=== PATIENT | female | born 1975 | race African-American/Black ===

== ENCOUNTER 2017-06-27 19:05 | Emergency (ER) | payer MEDICAID ==
[~2017-06-27] VITALS: Ht 157.5 cm; Wt 81.7 kg
--- NOTE | ~2017-06-27 | EKG ---
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1975 Requested By: Andres Felton Order Number: [id number] MD: Parker Apple Measurements Intervals [place] Rate: 63 P: 8 [place]: 125 QRS: 54 QRSD: 90 T: 40 QT: 422 QTc: 433 Interpretive Statements Sinus rhythm No significant abnormality Baseline wander in lead(s) V5 No previous ECG available for comparison Electronically Signed On 06-28-2017 9:03:45 [employer] by Parker Apple [email or web address] <ELECTRONICALLY SIGNED> By: Parker Apple MD, [facility] 06/28/17 0903 [id number] Parker Apple MD, FACC /EPI
[2017-06-27] MEDS ORDERED: NOHOMEMEDICATIONS (19:38)
[2017-06-27 19:49] LABS: ABSOLUTE NEUTROPHILS 2.4 thou/uL (1.4-8.2); BASOPHILS 1.6 % (0.0-2.0); EOSINOPHILS 0.8 % (0.0-3.0); HEMATOCRIT 41.8 % (37.0-47.0); LYMPHOCYTES 54.8 % (24.0-44.0); MCH 28.4 pg (26.0-34.0); MCHC 33.4 g/dL (28.0-37.0); MCV 85.1 fL (80.0-100.0); MONOCYTES 6.3 % (1.0-8.0); PLATELET COUNT 301 thou/uL (150-400); POLYS 36.5 % (36.0-66.0); RBC 4.91 mil/uL (4.20-5.00); RDW 13.8 % (10.5-14.5); WBC 6.6 thou/uL (4.0-11.0)
[2017-06-27 19:58] LABS: CALCIUM 9.4 mg/dL (8.5-10.1); CREATININE 0.7 mg/dL (0.6-1.0)
[2017-06-27] MEDS ORDERED: MOBIC15 MG PO (21:30)
== END 2017-06-27 21:57 | disposition home or self-care (01) ==
LOC: ER 19:05
PROVIDERS: Physician Assistant
DX: R07.89 Other chest pain (principal); Z90.710 Acquired absence of both cervix and uterus; Z88.1 Allergy status to other antibiotic agents

== ENCOUNTER 2018-03-12 17:02 | Emergency (ER) | payer OTHER ==
[~2018-03-12] VITALS: Ht 157.5 cm; Wt 72.6 kg
--- NOTE | ~2018-03-12 | EKG ---
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
[~2018-03-12 17:02] MED LIST: MOBIC15 MG PO; NOHOMEMEDICATIONS
[2018-03-12 18:28] LABS: ANION GAP 8 mmol/L (7-16); BUN 13 mg/dL (7-18); CALCIUM 9.1 mg/dL (8.5-10.1); CHLORIDE 104 mmol/L (98-107); CO2 29 mmol/L (21-32); CREATININE 0.7 mg/dL (0.6-1.0); GLUCOSE 96 mg/dL (74-106); POTASSIUM 3.6 mmol/L (3.5-5.1); SODIUM 141 mmol/L (136-145)
[2018-03-12 18:37] LABS: ALBUMIN 3.9 g/dL (3.4-5.0); SGOT 14 U/L (15-37); SGPT 16 U/L (30-65); TOTAL BILIRUBIN 0.3 mg/dL (<0.1-1.0); TOTAL PROTEIN 7.5 g/dL (6.4-8.2); TROPONIN-I <0.06 ng/mL (<0.06)
[2018-03-12] MEDS ORDERED: PROTONIX40 MG PO (20:15)
[2018-03-12 20:43] VITALS: BP 146/89
== END 2018-03-12 20:44 | disposition home or self-care (01) ==
LOC: ER 17:02
PROVIDERS: Student in an Organized Health Care Education/Training Program
DX: K21.9 Gastro-esophageal reflux disease without esophagitis (principal); G89.29 Other chronic pain; Z88.1 Allergy status to other antibiotic agents; Z88.2 Allergy status to sulfonamides; Z82.49 Family history of ischemic heart disease and other diseases of the circulatory system